=== PATIENT | female | born 1960 | race Caucasian/White ===

== ENCOUNTER 2016-04-27 08:02 | Emergency (ER) | payer BC, MEDICARE ==
[2016-04-27 08:55] VITALS: BP 179/108
--- NOTE | 2016-04-27 09:14 | UC ---
Throat Pain/Nasal Deep HPI - HPI Summary HPI Summary: SIX DAYS OF CONGESTION, SORE THROAT, PRODUCTIVE COUGH, LEFT EAR ACHE/PRESSURE, HEADACHE, SINUS PRESSURE. - History of Current Complaint Chief Complaint: UC Stated Complaint: SORE THROAT,HEADACHE,EAR PAIN,SINUS Time Seen by Provider: 04/27/16 08:07 Hx Obtained From: Patient Hx Last Menstrual Period: yrs Onset/Duration: Gradual Onset, Lasting Weeks, Still Present Severity: Moderate Cough: Productive Associated Signs & Symptoms: Positive: Hoarseness, Sinus Discomfort, Nasal Discharge, Fever - 99F - Epiglottits Risk Factors Epiglottis Risk Factors: Negative - Allergies/Home Medications Allergies/Adverse Reactions: Allergies Allergy/AdvReac Type Severity Reaction Status Date / Time Sulfa Antibiotics Allergy Intermediate Nausea Verified 04/27/16 08:48 Home Medications: Home Medications Fluticasone NASAL SPRAY 50MCG* [Flonase NASAL SPRAY 50MCG*] 1 spray BOTH NARES DAILY 04/27/16 [History Confirmed 04/27/16] PMH/Surg Hx/FS Hx/Imm Hx Previously Healthy: Yes Cardiovascular History Of: Reports: Hypertension Respiratory History Of: Reports: Asthma, Bronchitis - Surgical History Surgical History: Yes Surgery Procedure, Year, and Place: TUBAL LIGATION. foot surgeries bilateral- last surgery on left foot 02/2016 - Family History Known Family History: Positive: Hypertension - Social History Occupation: Unemployed Lives: With Family Alcohol Use: Occasionally Substance Use Type: None Smoking Status (MU): Never Smoked Tobacco - Immunization History Most Recent Influenza Vaccination: NOT THIS SEASON Review of Systems Constitutional: Negative Skin: Negative Eyes: Negative ENT: Sore Throat, Ear Ache, Nasal Discharge Respiratory: Cough Cardiovascular: Negative Gastrointestinal: Negative Genitourinary: Negative Motor: Negative Neurovascular: Negative Musculoskeletal: Negative Neurological: Negative Psychological: Negative All Other Systems Reviewed And Are Negative: Yes Physical Exam Triage Information Reviewed: Yes Appearance: No Pain Distress, Well-Nourished, Ill-Appearing - MILD Vital Signs: Initial Vital Signs Temp 99.5 F 04/27/16 08:38 Pulse 98 04/27/16 08:38 Resp 18 04/27/16 08:38 BP 179/108 04/27/16 08:38 Pulse Ox 97 04/27/16 08:38 Vital Signs Reviewed: Yes Eye Exam: Normal ENT: Positive: Hearing grossly normal, Pharyngeal erythema, Nasal congestion, TM bulging, TM dull Dental Exam: Normal Neck exam: Normal Neck: Positive: Supple, Nontender, No Lymphadenopathy Respiratory Exam: Normal Respiratory: Positive: Chest non-tender, Lungs clear, Normal breath sounds, No respiratory distress, No accessory muscle use Cardiovascular: Positive: No Murmur, Pulses Normal, Brisk Capillary Refill, Tachycardia Abdominal Exam: Normal Abdomen Description: Positive: Nontender, No Organomegaly Musculoskeletal Exam: Normal Neurological Exam: Normal Psychological Exam: Normal Psychological: Positive: Normal Response To Family Skin Exam: Normal Throat Pain/Nasal Course/Dx - Differential Dx/Diagnosis Differential Diagnosis/HQI/PQRI: Pharyngitis, Sinusitis, Tonsillitis, URI Provider Diagnoses: SINUSITIS Discharge - Discharge Plan Condition: Stable Disposition: HOME Prescriptions: Amoxicillin/Clavulanate TAB* [Augmentin TAB 875*] 875 mg PO BID #20 tab Patient Education Materials: Sinusitis (ED) Referrals: Heather Kahn [Primary Care Provider] -
== END 2016-04-27 09:19 | disposition home or self-care (01) ==
LOC: UCCORT 08:02
DX: J32.9 Chronic sinusitis, unspecified (principal); Z88.2 Allergy status to sulfonamides
CPT/HCPCS: 99212; G0463

== ENCOUNTER 2017-03-21 08:19 | Emergency (ER) | payer BC, MEDICARE ==
[2017-03-21 09:22] VITALS: BP 146/81
--- NOTE | 2017-03-21 09:42 | UC ---
Throat Pain/Nasal Deep HPI - HPI Summary HPI Summary: sore throat x 7 days + nasal congestion ,pnd, fever, chills and body aches - History of Current Complaint Chief Complaint: UCRespiratory Stated Complaint: FLU SYMPTOMS Time Seen by Provider: 03/21/17 09:08 Hx Obtained From: Patient Hx Last Menstrual Period: yrs Onset/Duration: Gradual Onset, Lasting Days - 7, Still Present, Worse Since - past 2 days Severity: Severe Pain Intensity: 8 Cough: Nonproductive Associated Signs & Symptoms: Positive: Sinus Discomfort, Nasal Discharge, Fever. Negative: Rash - Allergies/Home Medications Allergies/Adverse Reactions: Allergies Allergy/AdvReac Type Severity Reaction Status Date / Time MS Sulfa Antibiotics Allergy Intermediate Nausea Verified 03/21/17 09:11 [Sulfa Antibiotics] Home Medications: Home Medications Oxycodone HCl/Acetaminophen [Percocet] 1 tab PO PRN 03/21/17 [History] PMH/Surg Hx/FS Hx/Imm Hx Previously Healthy: Yes Endocrine History: Diabetes Cardiovascular History: Hypertension Respiratory History: Asthma - Surgical History Surgical History: Yes Surgery Procedure, Year, and Place: TUBAL LIGATION. foot surgeries bilateral- last surgery on left foot 02/2016 - Family History Known Family History: Positive: Hypertension - Social History Alcohol Use: Occasionally Substance Use Type: None Smoking Status (MU): Never Smoked Tobacco - Immunization History Most Recent Influenza Vaccination: NOT THIS SEASON Review of Systems Constitutional: Fever, Chills, Fatigue Skin: Negative Eyes: Negative ENT: Sore Throat, Nasal Discharge, Sinus Congestion Respiratory: Cough Cardiovascular: Negative Gastrointestinal: Negative Is Patient Immunocompromised?: No All Other Systems Reviewed And Are Negative: Yes Physical Exam Triage Information Reviewed: Yes Appearance: Well-Appearing, No Pain Distress, Well-Nourished Vital Signs: Initial Vital Signs Temp 101.3 F 03/21/17 09:15 Pulse 95 03/21/17 09:15 Resp 20 03/21/17 09:15 BP 146/81 03/21/17 09:15 Pulse Ox 98 03/21/17 09:15 Vital Signs Reviewed: Yes Eyes: Positive: Conjunctiva Clear ENT: Positive: Normal ENT inspection, Hearing grossly normal, Pharyngeal erythema, Nasal congestion, Nasal drainage, Sinus tenderness Neck exam: Normal Neck: Positive: Supple, Nontender, No Lymphadenopathy Respiratory: Positive: Chest non-tender, Lungs clear, Normal breath sounds, No respiratory distress Cardiovascular: Positive: RRR, No Murmur, Pulses Normal, Brisk Capillary Refill Skin Exam: Normal Throat Pain/Nasal Course/Dx - Differential Dx/Diagnosis Provider Diagnoses: sinusitis Discharge - Discharge Plan Condition: Stable Disposition: HOME Prescriptions: Amoxicillin/Clavulanate TAB* [Augmentin TAB 875*] 875 mg PO BID #20 tab Patient Education Materials: Sinusitis (ED), Influenza (ED) Referrals: Heather Kahn [Primary Care Provider] - If Needed
== END 2017-03-21 09:46 | disposition home or self-care (01) ==
LOC: UCCORT 08:19
DX: J32.9 Chronic sinusitis, unspecified (principal)
CPT/HCPCS: 87651; 99212; G0463

== ENCOUNTER 2017-05-09 10:58 | Emergency (ER) | payer BC, MEDICARE ==
--- NOTE | 2017-05-09 11:42 | UC ---
General HPI - HPI Summary HPI Summary: monday pm, pt slipped and fell. she reports "hyper extending" her R leg. she is c/o instant pain to her upper hamstring. she now notes pain in the R hip and hamstring plus has bruising and swelling from thigh area plus swelling into her lower leg. she has tried devan wrap and aleve with no relief. - History of Current Complaint Stated Complaint: RIGHT KNEE/LEG/FOOT INJURY Time Seen by Provider: 05/09/17 11:28 Hx Obtained From: Patient Hx Last Menstrual Period: yrs Onset/Duration: Sudden Onset Timing: Constant Associated Signs & Symptoms: Negative: Cough, Chest Pain, Fever, SOB - Allergy/Home Medications Allergies/Adverse Reactions: Allergies Allergy/AdvReac Type Severity Reaction Status Date / Time Sulfa (Sulfonamide AdvReac Nausea Verified 05/09/17 11:55 Antibiotics) Home Medications: Home Medications Naproxen Sodium [Aleve] 440 mg PO ONCE 05/09/17 [History Confirmed 05/09/17] PMH/Surg Hx/FS Hx/Imm Hx - Additional Past Medical History Additional PMH: ALLERGIES, OA, HTN-NO TX SINCE WEIGHT LOSS, 12/23 FUSION R FOOT, PE. - Surgical History Surgical History: Yes Surgery Procedure, Year, and Place: TUBAL LIGATION. foot surgeries bilateral- last surgery on left foot 02/2016 - Family History Known Family History: Positive: Hypertension - Social History Alcohol Use: Occasionally Substance Use Type: None Smoking Status (MU): Never Smoked Tobacco - Immunization History Most Recent Influenza Vaccination: NOT THIS SEASON Vaccination Up to Date: Yes Review of Systems Constitutional: Negative Skin: Negative Eyes: Negative ENT: Negative Respiratory: Negative Cardiovascular: Negative Gastrointestinal: Negative Genitourinary: Negative Motor: Negative Neurovascular: Negative Musculoskeletal: Other: - pain/swelling R hamstring/hip Neurological: Negative Psychological: Negative Is Patient Immunocompromised?: No All Other Systems Reviewed And Are Negative: Yes Physical Exam Triage Information Reviewed: Yes Appearance: Well-Appearing Vital Signs Reviewed: Yes Eye Exam: Normal ENT Exam: Normal Neck exam: Normal Respiratory: Positive: Lungs clear, Normal breath sounds Cardiovascular: Positive: RRR, No Murmur Abdomen Description: Positive: Nontender, No Organomegaly, Soft Bowel Sounds: Positive: Present Musculoskeletal: Positive: Other: - RLE: bruising and swelling from base of buttock into back of thigh. swelling extends into her lower leg. very tender over hamstring are and mildly tender over the hip, posterior knee and calf. pt able to flex and extend at hip and knee but both limited by pain. No knee laxity. ankle and foot have full s/v/m function. Neurological: Positive: Alert Psychological: Positive: Age Appropriate Behavior Skin Exam: Normal Procedures - Procedure Summary Procedure Summary: 6" DEVAN R THIGH. APPLIED BY MYSELF. DISTAL S/V/M INTACT AFTER. Diagnostics - Radiology No standard instances Radiology Interpretation Completed By: Radiologist - NO FX'S OR DVT Course/Dx - Course Course Of Treatment: NO FX'S OR DVT. WILL DEVAN THIGH, PT HAS CRUTCHES FROM HER NOV FOOT SURGERY AND WILL REFER TO ORTHO FOR F/U AND TX OF HAMSTRING INJURY - Differential Dx - Multi-Symptom Provider Diagnoses: Tear R hamstring Discharge - Sign-Out/Discharge Documenting (check all that apply): Discharge - Discharge Plan Condition: Stable Disposition: HOME Patient Education Materials: Hamstring Injury (ED) Referrals: Heather Kahn [Primary Care Provider] - If Needed González Pendleton MD [Medical Doctor] - As Soon As Possible Additional Instructions: use your crutches and devan wrap until cleared by orthopedics. avoid weight on right leg. wear devan during day and remove it every night. - Billing Disposition and Condition Condition: STABLE Disposition: HOME
[2017-05-09 11:55] VITALS: BP 146/93
[2017-05-09] MEDS ORDERED: Acetaminophen TAB* 325 MG PO ONE (12:07)
[2017-05-09] MEDS ORDERED: Ibuprofen ADULT LIQ* 600 MG/30 ML UDC PO ONE (12:08)
--- NOTE | 2017-05-09 12:36 | RAD ---
HISTORY: Fall, right leg edema COMPARISONS: None relevant TECHNIQUE: Multiple transverse and longitudinal ultrasound images were obtained of the right lower extremity from the level of the common femoral vein inferiorly through to the infrapopliteal veins using grayscale, color Doppler, and spectral Doppler imaging with and without compression and with augmentation. Comparison images were obtained of the contralateral common femoral vein. FINDINGS: VEINS: The venous system of the right lower extremity is compressible throughout its course, with normal flow on color Doppler imaging and normal response to augmentation on spectral Doppler imaging. SOFT TISSUES: Unremarkable. OTHER FINDINGS: None. IMPRESSION: NO RIGHT LOWER EXTREMITY DEEP VEIN THROMBOSIS
--- NOTE | 2017-05-09 12:49 | RAD ---
HISTORY: Subacute trauma, swelling and pain, right hip COMPARISONS: None VIEWS: 7, Frontal view of the pelvis with frontal and frog-leg views with frontal and lateral views of the right femur FINDINGS: BONE DENSITY: Normal. BONES: There is no displaced fracture. JOINTS: There is no arthropathy. ALIGNMENT: There is no dislocation. SOFT TISSUES: Unremarkable. OTHER FINDINGS: None. IMPRESSION: NO ACUTE OSSEOUS INJURY OF THE RIGHT HIP OR RIGHT FEMUR. X-RAYS MAY BE NEGATIVE WITH NONDISPLACED HIP FRACTURE, IF THERE IS PERSISTENT CLINICAL CONCERN, RECOMMEND CONSIDERATION OF MRI. IN THE SETTING OF CONTRAINDICATION TO MRI OR LIMITATION IN EMERGENT ACCESS TO MRI, CT WOULD BE SUGGESTED.
== END 2017-05-09 13:02 | disposition home or self-care (01) ==
LOC: UCCORT 10:58
DX: S76.811A Strain of other specified muscles, fascia and tendons at thigh level, right thigh, initial encounter (principal); W01.0XXA Fall on same level from slipping, tripping and stumbling without subsequent striking against object, initial encounter; Y93.9 Activity, unspecified; Y92.9 Unspecified place or not applicable; R60.0 Localized edema; Z88.2 Allergy status to sulfonamides
CPT/HCPCS: 99212; A9270-GY; G0463

== ENCOUNTER 2017-11-07 10:48 | Emergency (ER) | payer BC, MEDICARE ==
[2017-11-07 12:07] VITALS: BP 164/106
--- NOTE | 2017-11-07 12:49 | RAD ---
Indication: LEFT side rib and shoulder pain post fall 3 days ago. Comparison: No relevant prior exams available on the [facility] PACS for comparison. Technique: Internal rotation AP, external rotation Grashey, scapular Y, axillary views LEFT shoulder Report: Negative for fracture. Normal acromioclavicular and glenohumeral joint alignment. Mild osteophytosis and subchondral cystic change at the acromioclavicular joint. Preserved glenohumeral joint space. Unremarkable soft tissue contours. IMPRESSION: #. Negative for fracture or dislocation.
--- NOTE | 2017-11-07 12:50 | RAD ---
INDICATION: Left rib injury. COMPARISON: Comparison is made with a prior chest x-ray study from March 08, 2015. TECHNIQUE: 3 views of the left ribs and dual-energy PA views of the chest were obtained. FINDINGS: No fracture or significant focal osseous abnormality is seen. The heart is within normal limits in size. The lungs are clear. There is no evidence for pneumothorax or pleural effusion. IMPRESSION: NO EVIDENCE FOR FRACTURE.
--- NOTE | 2017-11-07 12:55 | UC ---
Shoulder Pain HPI - HPI Summary HPI Summary: left shoulder pain and left side rib pain x 3 day pain with breathing and trunk movement , pain with left shoulder movement no fever, no chills, no sob , - History of Current Complaint Chief Complaint: UCUpperExtremity Stated Complaint: S/P FALL (MONDAY) RIB/SHOULDER PAIN Time Seen by Provider: 11/07/17 12:05 Hx Obtained From: Patient Hx Last Menstrual Period: yrs Onset/Duration: Sudden Onset, Lasting Days - 3, Still Present Timing: Constant Severity Initially: Severe Severity Currently: Severe Location Of Pain: Is Discrete @ - left shoulder , left side ribs Pain Intensity: 8 Character: Aching, Throbbing Aggravating Factor(s): Movement, Lifting, Flexion, Extension Alleviating Factor(s): Rest, Ice Associated Signs And Symptoms: Positive: Weakness. Negative: Swelling, Redness , Bruising, Fever, Numbness/Tingling - Allergies/Home Medications Allergies/Adverse Reactions: Allergies Allergy/AdvReac Type Severity Reaction Status Date / Time Sulfa (Sulfonamide AdvReac Nausea Verified 11/07/17 11:59 Antibiotics) PMH/Surg Hx/FS Hx/Imm Hx Endocrine History: Diabetes Cardiovascular History: Hypertension Respiratory History: Pulmonary Embolism - Surgical History Surgical History: Yes Surgery Procedure, Year, and Place: TUBAL LIGATION. foot surgeries bilateral- last surgery on left foot 02/2016 - Family History Known Family History: Positive: Hypertension - Social History Alcohol Use: Occasionally Substance Use Type: None Smoking Status (MU): Never Smoked Tobacco - Immunization History Most Recent Influenza Vaccination: NOT THIS SEASON Vaccination Up to Date: Yes Review of Systems Constitutional: Negative Skin: Negative Eyes: Negative ENT: Negative Respiratory: Negative Cardiovascular: Negative Is Patient Immunocompromised?: No All Other Systems Reviewed And Are Negative: Yes Physical Exam Triage Information Reviewed: Yes Appearance: Well-Nourished, Pain Distress Vital Signs: Initial Vital Signs Temp 98.5 F 11/07/17 11:58 Pulse 78 11/07/17 11:58 Resp 17 11/07/17 11:58 BP 164/106 11/07/17 11:58 Pulse Ox 100 11/07/17 11:58 Vital Signs Reviewed: Yes Eyes: Positive: Conjunctiva Clear ENT: Positive: Normal ENT inspection, Hearing grossly normal, Pharynx normal Neck: Positive: Supple, Nontender, No Lymphadenopathy Respiratory: Positive: Chest non-tender, Lungs clear, Normal breath sounds Cardiovascular: Positive: RRR, No Murmur, Pulses Normal Abdomen Description: Positive: Nontender, Soft. Negative: CVA Tenderness (R), CVA Tenderness (L), Distended, Guarding Bowel Sounds: Positive: Present Musculoskeletal: Positive: Other: - left shoulder : + diffuse tenderness, no swelling, no erythema, + pain with any movements limited strength left ribs : + tenderness 4,5,6,7 ribs lateraly Skin Exam: Normal Diagnostics - Laboratory Diagnostic Studies Completed/Ordered: xray left shoulder and left ribs : no fracture seen Shoulder Course/Dx - Differential Dx/Diagnosis Provider Diagnoses: contusion left shoulder. left ribs contusion Discharge - Sign-Out/Discharge Documenting (check all that apply): Patient Departure All imaging exams completed and their final reports reviewed: Yes - Discharge Plan Condition: Stable Disposition: HOME Patient Education Materials: Shoulder Pain (ED), Rib Contusion (ED) Referrals: Heather Kahn [Primary Care Provider] - 7 Days - Billing Disposition and Condition Condition: STABLE Disposition: Home
== END 2017-11-07 13:00 | disposition home or self-care (01) ==
LOC: UCCORT 10:48
DX: S40.012A Contusion of left shoulder, initial encounter (principal); S20.20XA Contusion of thorax, unspecified, initial encounter; W19.XXXA Unspecified fall, initial encounter; Y93.9 Activity, unspecified; Y92.9 Unspecified place or not applicable; Z88.1 Allergy status to other antibiotic agents; E11.9 Type 2 diabetes mellitus without complications; I10 Essential (primary) hypertension; Z86.711 Personal history of pulmonary embolism
CPT/HCPCS: 99211; G0463

== ENCOUNTER 2018-06-07 18:44 | Emergency (ER) | payer BC, MEDICARE ==
[2018-06-07 20:07] VITALS: BP 190/102
--- NOTE | 2018-06-07 20:30 | UC ---
Headache HPI - HPI Summary HPI Summary: Pt presents with progressive "intense" MOSER. Pt states first noted 4 days ago. Pt was placed on abx for a UTI out of town 10 days ago - states had some sinus pressure at this time. Pt states thought MOSER was related to medicine, but didn't get better no fever, chills. States vision feels like need to focus "hard", slight nausea, and slowing of thought because need to "concentrate hard." No relief eith OTC meds. no h/o MOSER like this. Pt states also noted increase in BP today. No cp, sob. No head trauma. No paresthesia or ext weakness. 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 Onset/Duration: Gradual Onset, Lasting Days Pain Intensity: 9 - Allergies/Home Medications Allergies/Adverse Reactions: Allergies Allergy/AdvReac Type Severity Reaction Status Date / Time Sulfa (Sulfonamide AdvReac Nausea Verified 06/07/18 20:07 Antibiotics) Home Medications: Home Medications Acetaminophen TAB* [Tylenol TAB*] 650 mg PO Q4H PRN 06/07/18 [History Confirmed 06/07/18] Ibuprofen TAB* [Motrin TAB* 400 MG] 400 mg PO Q6H PRN 06/07/18 [History Confirmed 06/07/18] PMH/Surg Hx/FS Hx/Imm Hx Previously Healthy: Yes Cardiovascular History: Hypertension - Surgical History Surgical History: Yes Surgery Procedure, Year, and Place: TUBAL LIGATION. foot surgeries bilateral- last surgery on left foot 02/2016 - Family History Known Family History: Positive: Hypertension - Social History Lives: With Family Alcohol Use: Occasionally Substance Use Type: None Smoking Status (MU): Never Smoked Tobacco - Immunization History Most Recent Influenza Vaccination: NOT THIS SEASON Vaccination Up to Date: Yes Review of Systems All Other Systems Reviewed And Are Negative: Yes Constitutional: Positive: Negative Skin: Positive: Negative Eyes: Positive: Blurred Vision. Negative: Diplopia, Photophobia Respiratory: Positive: Negative Cardiovascular: Positive: Negative Motor: Positive: Negative Neurological: Positive: Headache. Negative: Paresthesia Psychological: Positive: Negative Physical Exam - Summary Physical Exam Summary: Vital Signs Reviewed: Yes A+Ox3, obvious discomfort, holding frontal area Eyes: Conjunctiva Clear, STACEY. EOM intact and full, mild photophobia ENT: Hearing grossly normal TM x 2 clear, mmoist, uvula midline, no exudate, no erythema Neck: Positive: Supple. no bruits Respiratory: Positive: No respiratory distress, No accessory muscle use + CTA throughout no w/r Cardiovascular: RRR nl s1, s2 no m/r CBT <2 sec abd soft + BS nt/nd no guarding, no distension Musculoskeletal Exam: RATLIFF x 4 without difficulty Strength Intact, ROM Intact Neurological: Positive: Alert, + sensation throughout CN 2- 12 intact, RATLIFF. no difficulty with balance Psychological: Positive: Normal Response To Family Skin: Positive: no rash, no ecchymosis Triage Information Reviewed: Yes Vital Signs: Initial Vital Signs Temp 98.0 F 06/07/18 20:00 Pulse 88 06/07/18 20:00 Resp 18 06/07/18 20:00 BP 190/102 06/07/18 20:00 Pulse Ox 99 06/07/18 20:00 Headache Course/Dx - Course Course Of Treatment: pt with progressive, intense MOSER x 4 days. Pt reports difficulty with focus and slowing of thought related to MOSER. no vomiting mild nausea. Pt with markedly elevated BP today . Recommend pt to ED for further eval - HTN urgency, ICH Pt in agreement - drive self to - pt called who will come and drive pt will closely monitor spoke to CHRISTOPHER Pham in ED -aware pt coming by POV - Differential Dx/Diagnosis Provider Diagnosis: Headache, Elevated blood pressure reading Discharge - Sign-Out/Discharge Documenting (check all that apply): Patient Departure All imaging exams completed and their final reports reviewed: No Studies - Discharge Plan Condition: Stable Disposition: HOME-RECOMMEND TO ED Patient Education Materials: Acute Headache (ED) Referrals: Heather Kahn [Primary Care Provider] - Additional Instructions: The doctor that evaluated you today thinks that you need additional testing that can be completed the emergency department. It is recommended that you go directly to emergency department for further evaluation. This evaluation may include blood work or imaging. This testing will be directed and decided by the provider that evaluate you at the emergency department. If pain becomes worse, you feel lightheaded, you have uncontrolled vomiting, or you have any other concerns while you are being driven to emergency department as recommended to pullover and contact 911. - Billing Disposition and Condition Condition: STABLE Disposition: Home-Recommend to ED
== END 2018-06-07 20:47 | disposition home health service (06) ==
LOC: UCCORT 18:44
DX: R51 Headache (principal); R11.0 Nausea; H53.8 Other visual disturbances; I10 Essential (primary) hypertension; Z88.2 Allergy status to sulfonamides
CPT/HCPCS: 99212; G0463

== ENCOUNTER 2018-12-21 08:27 | Emergency (ER) | payer BC, MEDICARE ==
[2018-12-21 09:04] VITALS: BP 161/99
--- NOTE | 2018-12-21 10:10 | UC ---
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 Onset/Duration: Gradual Onset Severity: Mild Pain Intensity: 4 Pain Scale Used: 0-10 Numeric Cough: Nonproductive Associated Signs & Symptoms: Negative: Dysphagia, FB Sensation, Drooling, Wheezing, Hoarseness, Sinus Discomfort, Nasal Discharge, Fever, Vomiting, Rash Related History: Seasonal Allergies - Allergies/Home Medications Allergies/Adverse Reactions: Allergies Allergy/AdvReac Type Severity Reaction Status Date / Time Sulfa (Sulfonamide AdvReac Nausea Verified 12/21/18 09:04 Antibiotics) PMH/Surg Hx/FS Hx/Imm Hx Previously Healthy: Yes - Surgical History Surgical History: Yes Surgery Procedure, Year, and Place: TUBAL LIGATION. foot surgeries bilateral- last surgery on left foot 02/2016. EYELID SURGERY-REMOVED ACCESS SKIN - Family History Known Family History: Positive: Hypertension - Social History Alcohol Use: Occasionally Substance Use Type: None Smoking Status (MU): Never Smoked Tobacco - Immunization History Most Recent Influenza Vaccination: NOT THIS SEASON Vaccination Up to Date: Yes Review of Systems All Other Systems Reviewed And Are Negative: Yes Constitutional: Positive: Negative Skin: Positive: Negative Eyes: Positive: Negative ENT: Positive: Sore Throat, Ear Ache, Nasal Discharge, Sinus Congestion, Sinus Pain/Tenderness Respiratory: Positive: Cough Cardiovascular: Positive: Negative Gastrointestinal: Positive: Negative Genitourinary: Positive: Negative Motor: Positive: Negative Neurovascular: Positive: Negative Musculoskeletal: Positive: Negative Neurological: Positive: Negative Psychological: Positive: Negative Physical Exam Triage Information Reviewed: Yes Appearance: Well-Appearing, No Pain Distress, Well-Nourished Vital Signs: Initial Vital Signs Temp 99.5 F 12/21/18 09:01 Pulse 97 12/21/18 09:01 Resp 18 12/21/18 09:01 BP 161/99 12/21/18 09:01 Pulse Ox 98 12/21/18 09:01 Vital Signs Reviewed: Yes Eyes: Positive: Conjunctiva Clear ENT: Positive: Hearing grossly normal, Pharyngeal erythema, Nasal congestion, Nasal drainage, TMs normal, Sinus tenderness, Uvula midline, Other - uvular edema. Negative: Tonsillar swelling, Tonsillar exudate Neck: Positive: Supple, Nontender, No Lymphadenopathy Respiratory: Positive: Lungs clear, Normal breath sounds, No respiratory distress, No accessory muscle use Cardiovascular: Positive: RRR Musculoskeletal: Positive: ROM Intact, No Edema Neurological: Positive: Alert Psychological Exam: Normal Throat Pain/Nasal Course/Dx - Differential Dx/Diagnosis Provider Diagnosis: Sinusitis, Uvular edema, Elevated BP without diagnosis of hypertension Discharge ED - Sign-Out/Discharge Documenting (check all that apply): Patient Departure All imaging exams completed and their final reports reviewed: No Studies - Discharge Plan Condition: Stable Disposition: HOME Prescriptions: Amoxicillin PO (*) [Amoxicillin 875 MG (*)] 875 mg PO BID #14 tab predniSONE TAB* [Deltasone 20 MG TAB*] 40 mg PO DAILY #8 tab Patient Education Materials: Sinusitis (ED) Referrals: Heather Kahn [Primary Care Provider] - 3 Days (if not better) Additional Instructions: BP recheck in 2-12 weeks - Billing Disposition and Condition Condition: STABLE Disposition: Home
== END 2018-12-21 10:17 | disposition home or self-care (01) ==
LOC: UCCORT 08:27
DX: J32.9 Chronic sinusitis, unspecified (principal); K13.79 Other lesions of oral mucosa; R03.0 Elevated blood-pressure reading, without diagnosis of hypertension; Z88.2 Allergy status to sulfonamides
CPT/HCPCS: 87651; 99212; G0463